=== PATIENT | male | born 1990 | race African-American/Black ===

== ENCOUNTER 2019-08-18 19:46 | Emergency (ER) | payer OTHER ==
[~2019-08-18] VITALS: Ht 170.2 cm; Wt 102.1 kg
[~2019-08-18 19:46] MED LIST: NOHOMEMEDICATIONS; PEPCID40 MG PO
[2019-08-18] MEDS ORDERED: BUTALB-APAP-CA1 EACH PO (20:00)
[2019-08-18] MEDS ORDERED: SENNA8.6 MG PO (20:01)
[2019-08-18] MEDS ORDERED: AMOXICILLIN 50500 M1 PO (20:38)
[2019-08-18] MEDS ORDERED: ROBAXIN 750 MG750 MG PO (20:39)
[2019-08-18 21:10] VITALS: BP 130/83
== END 2019-08-18 21:10 | disposition home or self-care (01) ==
LOC: ER 19:46 → EDBD 19:46 → ER 21:10
DX: M26.601 Right temporomandibular joint disorder, unspecified (principal); Z91.012 Allergy to eggs; Z91.041 Radiographic dye allergy status; Z91.013 Allergy to seafood